=== PATIENT | male | born 1945 | race Caucasian/White ===

== ENCOUNTER 2016-07-28 20:47 | Inpatient (IN) | payer BC ==
[2016-07-28] MEDS ORDERED: cefTRIAXone 2 GM in SODIUM CHLORIDE 0.9% MINIBAG 100 ML IV STA (21:10)
[2016-07-28] MEDS ORDERED: IPRATROPIUM/ALBUTEROL 3 ML NEB INH STA (21:10)
[2016-07-28] MEDS ORDERED: SODIUM CHLORIDE 0.9% 1,000 ML IV ONE (21:10)
[2016-07-28] MEDS ORDERED: IPRATROPIUM/ALBUTEROL 3 ML NEB INH ONE (21:22)
[2016-07-28] MEDS ORDERED: cefTRIAXone 2 GM VIAL ONE (21:25)
[2016-07-28] MEDS ORDERED: ALBUTEROL NEB 2.5 MG/3 ML INH PRN (22:15)
[2016-07-28] MEDS ORDERED: ONDANSETRON 4 MG/2 ML VIAL IVP PRN (22:15)
[2016-07-28] MEDS ORDERED: MORPHINE 2 MG/ML SYRINGE IVP PRN (22:15)
[2016-07-28] MEDS ORDERED: SODIUM CHLORIDE FLUSH 0.9% 10 ML SYRINGE IVP PRN (22:15)
[2016-07-28] MEDS ORDERED: ACETAMINOPHEN 325 MG TABLET PO PRN (22:15)
[2016-07-28] MEDS ORDERED: PIPERACILLIN/TAZOBACTAM 4.5 GM in SODIUM CHLORIDE 0.9% MINIBAG 100 ML IV STA (22:21)
[2016-07-28] MEDS ORDERED: INSULIN REGULAR HUMAN 100 UNIT in SODIUM CHLORIDE 0.9% 100ML 99 ML IV ONE (22:27)
[2016-07-28] MEDS ORDERED: ADENOSINE 6 MG/2 ML VIAL IVP ONE (22:52)
[2016-07-28] MEDS ORDERED: VANCOMYCIN INJ 1.5 GM in SODIUM CHLORIDE 0.9% 500 ML IV SCH (23:00)
[2016-07-28] MEDS ORDERED: VANCOMYCIN PER PHARMACY 1 GM in SODIUM CHLORIDE 0.9% 250 ML IV SCH (23:00)
[2016-07-28] MEDS ORDERED: INSULIN GLARGINE 300 UNIT/3 ML PEN SUBQ SCH (23:00)
[2016-07-28] MEDS ORDERED: diltiaZEM INJ 5 MG/ML VIAL ONE (23:56)
[2016-07-29] MEDS ORDERED: INSULIN REGULAR HUMAN 100 UNIT/1 ML 10 ML MDV SUBQ SCH
[2016-07-29] MEDS ORDERED: diltiaZEM INJ 5 MG/ML VIAL ONE (00:16)
[2016-07-29] MEDS ORDERED: ROCURONIUM 50 MG/5 ML VIAL IVP ONE ×2 (00:16→00:18)
[2016-07-29] MEDS ORDERED: MIDAZOLAM 50 MG/10 ML VIAL ONE (00:16)
[2016-07-29] MEDS ORDERED: IPRATROPIUM/ALBUTEROL 3 ML NEB INH PRN (01:05)
[2016-07-29] MEDS ORDERED: AMIODARONE 150 MG/100 ML 100 ML IV SCH (01:06)
[2016-07-29] MEDS ORDERED: AMIODARONE 360 MG/200 ML 200 ML IV SCH (01:06)
[2016-07-29] MEDS ORDERED: ALBUTEROL NEB 2.5 MG/3 ML INH PRN (01:07)
[2016-07-29] MEDS: SODIUM CHLORIDE 0.9% 1,000 ML IV SCH ×2 (01:30→04:38)
[2016-07-29] MEDS ORDERED: ACETAMINOPHEN 325 MG SUPP PR ONE (01:37)
[2016-07-29] MEDS ORDERED: FUROSEMIDE 40 MG/4 ML VIAL IVP STA (01:46)
[2016-07-29] MEDS ORDERED: FUROSEMIDE 40 MG/4 ML VIAL ONE (01:53)
[2016-07-29] MEDS ORDERED: FUROSEMIDE 40 MG/4 ML VIAL IVP SCH (01:59)
[2016-07-29] MEDS ORDERED: VASOPRESSIN 20 UNIT in DEXTROSE 5% 99 ML IVP ONE (02:03)
[2016-07-29] MEDS ORDERED: PHENYLEPHRINE 20 MG in SODIUM CHLORIDE 0.9% 248 ML IV ONE (02:04)
[2016-07-29] MEDS ORDERED: VASOPRESSIN 20 UNIT/ML VIAL ONE (02:13)
[2016-07-29] MEDS ORDERED: MAGNESIUM SULFATE 5 GM/10 ML VIAL IV STA (03:06)
[2016-07-29] MEDS ORDERED: SODIUM BICARBONATE ABBOJECT 50 MEQ/50 ML SYRINGE IVP ONE (03:09)
[2016-07-29] MEDS ORDERED: MAGNESIUM SULFATE 2 GRAM 50 ML IV ONE ×2 (03:16→04:00)
[2016-07-29] MEDS ORDERED: EPINEPHrine 1 MG/ML AMP ONE ×2 (04:08→04:17)
[2016-07-29] MEDS ORDERED: EPINEPHrine 1 MG/1 ML 30 ML MDV ONE (04:13)
[2016-07-29] MEDS ORDERED: EPINEPHrine ABBOJECT 1 MG/10 ML SYRINGE ONE (04:30)
[2016-07-29] MEDS ORDERED: SODIUM BICARBONATE ABBOJECT 50 MEQ/50 ML SYRINGE ONE (04:30)
[2016-07-29] MEDS ORDERED: SODIUM CHLORIDE FLUSH 0.9% 10 ML SYRINGE IVP SCH (06:00)
[2016-07-29] MEDS ORDERED: DEXTROSE 5% IV SCH (07:15)
[2016-07-29] MEDS ORDERED: AMIODARONE IV SCH (07:15)
[2016-07-29] MEDS ORDERED: SACCHAROMYCES BOULARDII 250 MG CAPSULE PO SCH (08:00)
[2016-07-29] MEDS ORDERED: ASPIRIN EC 81 MG TABLET PO SCH (09:00)
[2016-07-29] MEDS ORDERED: FAMOTIDINE 20 MG/50 ML 50 ML IV SCH (09:00)
[2016-07-29] MEDS ORDERED: ENOXAPARIN 40 MG/0.4 ML SYRINGE SUBQ SCH (09:00)
[2016-07-29] MEDS ORDERED: BIMATOPROST 0.01% OPHTH DROPS 2.5 ML EACHEYE SCH (09:00)
[2016-07-29] MEDS ORDERED: NON FORMULARY MED (Simvastatin [Simvastatin] 20 MG) PO SCH (09:00)
[2016-07-29] MEDS ORDERED: ATORVASTATIN 10 MG TABLET PO SCH (09:00)
[2016-07-29] MEDS ORDERED: VANCOMYCIN INJ 1.25 GM in SODIUM CHLORIDE 0.9% 250 ML IV SCH (11:00)
== END 2016-07-29 05:00 | disposition expired | DRG 871 ==
PROC: 5A1935Z Respiratory Ventilation, Less than 24 Consecutive Hours (ICD-10-PCS; principal; 2016-07-28)
PROC: 4A133B1 Monitoring of Arterial Pressure, Peripheral, Percutaneous Approach (ICD-10-PCS; principal; 2016-07-28)
PROC: 4A133J1 Monitoring of Arterial Pulse, Peripheral, Percutaneous Approach (ICD-10-PCS; principal; 2016-07-28)
PROC: 03HY32Z Insertion of Monitoring Device into Upper Artery, Percutaneous Approach (ICD-10-PCS; principal; 2016-07-28)
DX: A41.01 Sepsis due to Methicillin susceptible Staphylococcus aureus (principal); J18.9 Pneumonia, unspecified organism; R65.21 Severe sepsis with septic shock; J96.02 Acute respiratory failure with hypercapnia; J96.01 Acute respiratory failure with hypoxia; E13.10 Other specified diabetes mellitus with ketoacidosis without coma; N17.9 Acute kidney failure, unspecified; I47.1 Supraventricular tachycardia; J44.0 Chronic obstructive pulmonary disease with (acute) lower respiratory infection; A41.9 Sepsis, unspecified organism; D47.3 Essential (hemorrhagic) thrombocythemia; I45.81 Long QT syndrome; I10 Essential (primary) hypertension; I95.9 Hypotension, unspecified; J44.9 Chronic obstructive pulmonary disease, unspecified; H40.9 Unspecified glaucoma; K21.9 Gastro-esophageal reflux disease without esophagitis; E78.5 Hyperlipidemia, unspecified; G89.29 Other chronic pain; M54.9 Dorsalgia, unspecified; M47.819 Spondylosis without myelopathy or radiculopathy, site unspecified; C44.90 Unspecified malignant neoplasm of skin, unspecified; Z87.891 Personal history of nicotine dependence; Z79.4 Long term (current) use of insulin; Z79.899 Other long term (current) drug therapy